=== PATIENT | male | born 1975 | race Caucasian/White ===

== ENCOUNTER → 2017-12-18 | Outpatient (CLI) | payer BC ==
[~2017-12-18] MED LIST: ATOR-22
[2017-12-18 12:20] LABS: BASO % 0.6 %; BASO ABS # 0.05 K/uL (0-0.2); EOS % 1.4 %; EOS ABS # 0.13 K/uL (0-0.5); HEMATOCRIT 42.8 % (42-52); IG# 0.08 K/uL (0.00-0.02); LYMPH % 22.3 %; LYMPH ABS # 2.01 K/uL (1.2-3.4); MEAN CELL VOLUME 84.9 fL (80-100); MEAN CORPUSCULAR HEMOGLOBIN 29.8 pg (25-34); MEAN PLATELET VOLUME 10.4 fL (7.4-10.4); MONO % 9.3 %; MONO ABS # 0.84 K/uL (0.11-0.59); NEUT % 65.5 %; PLATELET COUNT 196 K/uL (130-400); RED CELL DISTRIBUTION WIDTH CV 12.5 % (11.5-14.5); RED CELL DISTRIBUTION WIDTH SD 38.6 fL (36.4-46.3); WHITE BLOOD COUNT 9.01 K/uL (4.8-10.8)
[2017-12-18 12:46] LABS: ALBUMIN 3.8 gm/dl (3.4-5.0); ALT/SGPT 44 U/L (12-78); BLOOD UREA NITROGEN 14 mg/dl (7-18); CALCIUM 8.9 mg/dl (8.5-10.1); CARBON DIOXIDE 24 mmol/L (21-32); CHOLESTEROL 254 mg/dl (0-200); CREATININE 0.81 mg/dl (0.60-1.40); GLUCOSE 104 mg/dl (70-99); POTASSIUM 4.1 mmol/L (3.5-5.1); SODIUM 140 mmol/L (136-145)
[2017-12-18 12:57] LABS: ALKALINE PHOSPHATASE 62 U/L (45-117); AST/SGOT 20 U/L (15-37); LDL CHOLESTEROL CALCULATED 161 mg/dl
== END | disposition home or self-care (01) ==
LOC: C.LABBFT 09:00
PROVIDERS: ATTEND Internal Medicine
DX: Z00.00 Encounter for general adult medical examination without abnormal findings (principal); E78.00 Pure hypercholesterolemia, unspecified; G47.00 Insomnia, unspecified; R53.83 Other fatigue; I10 Essential (primary) hypertension

== ENCOUNTER 2018-05-14 04:24 | Emergency (ER) | payer BC ==
[~2018-05-14] VITALS: Ht 188 cm; Wt 101.3 kg
[2018-05-14 04:26] VITALS: TEMP 36.8; Ht 188 cm; Wt 101.3 kg
[2018-05-14] MEDS ORDERED: KETOROLAC TROMETHAMINE 30 MG/ML VIAL IV STA (04:39)
[2018-05-14] MEDS ORDERED: DEXAMETHASONE SOD INJ 10 MG/ML VIAL ONE (04:45)
[2018-05-14] MEDS ORDERED: DEXAMETHASONE **PF** INJ 10 MG/ML VIAL IV ONE (04:45)
[2018-05-14 05:09] LABS: BASO % 0.3 %; BASO ABS # 0.03 K/uL (0-0.2); EOS % 1.2 %; EOS ABS # 0.14 K/uL (0-0.5); HEMATOCRIT 42.5 % (42-52); HEMOGLOBIN 14.3 g/dL (14.0-18.0); IG# 0.12 K/uL (0.00-0.02); LYMPH % 15.3 %; LYMPH ABS # 1.77 K/uL (1.2-3.4); MEAN CELL VOLUME 86.2 fL (80-100); MEAN CORPUSCULAR HGB CONC 33.6 g/dl (32-36); MEAN PLATELET VOLUME 10.9 fL (7.4-10.4); MONO % 8.1 %; MONO ABS # 0.94 K/uL (0.11-0.59); NEUT % 74.1 %; NEUT ABS # 8.57 K/uL (1.4-6.5); PLATELET COUNT 164 K/uL (130-400); RED CELL DISTRIBUTION WIDTH SD 41.4 fL (36.4-46.3); WHITE BLOOD COUNT 11.57 K/uL (4.8-10.8)
[2018-05-14] MEDS ORDERED: ATOR10TA82 PO (05:28)
[2018-05-14] MEDS ORDERED: AMLO10TA3 PO (05:28)
[2018-05-14 05:48] LABS: ALBUMIN 3.5 gm/dl (3.4-5.0); CALCIUM 8.4 mg/dl (8.5-10.1); CREATININE 0.83 mg/dl (0.60-1.40); POTASSIUM 4.3 mmol/L (3.5-5.1); TOTAL PROTEIN 6.4 gm/dl (6.4-8.2); URIC ACID 8.5 mg/dl (2.6-7.2)
[2018-05-14 06:26] VITALS: BP 155/101; PULSE 97; O2SAT 100
[2018-05-14] MEDS ORDERED: INDO75CA PO (06:39)
--- NOTE | 2018-05-14 08:06 | DIAGNOSTIC IMAGING REPORT ---
L WRIST MIN 3 VIEWS ROUTINE CLINICAL HISTORY: 42 years-old Male presenting with left wrist pain, swelling for 2 days. TECHNIQUE: Frontal, bilateral oblique, and lateral views of the left wrist were obtained. COMPARISON: None. FINDINGS: No acute fracture or malalignment. No advanced degenerative change. No radiographic soft tissue abnormality. IMPRESSION: No acute osseous injury. Electronically signed by: Mahamed Nava M.D. 05/14/2018 8:05 AM Dictated Date/Time: 05/14/2018 7:29 AM
--- NOTE | 2018-05-15 04:05 | EMERGENCY ROOM VISIT NOTE ---
History First contact with patient: 04:30 Chief Complaint: HAND PAIN/INJURY Stated Complaint: SEVERE LEFT WRIST/HAND PAIN History of Present Illness The patient is a 42 year old male who presents to the Emergency Room with complaints of severe left wrist pain for the past 3-4 days. The patient does not recall distinct injury or trauma to explain his symptoms. He is employed, but does not typically use repetitive motion with his hands at work such as typing. He has not had fever or chills. No numbness or paresthesias. No pain into the left shoulder, although at times he will have some discomfort coming into the left elbow. The patient has not had symptoms like this in the past. He considers himself otherwise usually healthy. He rates his current discomfort at 8/10, that worsens with certain movements of the hand and wrist. Review of Systems More than 10 systems were reviewed and otherwise negative with the exception of history of present illness. Past Medical/Surgical History No chronic medical disease Family History No pertinent family history Social History Smoking Status: Never Smoker Alcohol Use: occasionally Housing Status: lives with family Occupation Status: employed Current/Historical Medications Scheduled Amlodipine (Norvasc), 10 MG PO DAILY Atorvastatin (Lipitor), 10 MG PO DAILY Indomethacin Ext Rel (Indocin Ext Rel), 75 MG PO BID Physical Exam Vital Signs Date Time Temp Pulse Resp B/P (MAP) Pulse Ox O2 Delivery O2 Flow Rate FiO2 05/14/18 06:26 97 14 155/101 100 Room Air 05/14/18 04:26 36.8 107 18 137/84 97 Room Air Physical Exam VITALS: Vitals are noted on the nurse's note and reviewed by myself. Vital signs stable. GENERAL: Well-developed, well-nourished, white male, who is in no acute distress and resting comfortably. Patient is cooperative with the examination. NECK: Supple without nuchal rigidity. No lymphadenopathy. No thyromegaly. Cervical spine is nontender. HEART: Regular rate and rhythm without murmurs gallops or rubs. LUNGS: Clear to auscultation bilaterally without wheezes, rales or rhonchi. No retractions or accessory muscle use. MUSCULOSKELETAL: Tenderness is appreciated around the left wrist diffusely. There is no distinct point tenderness. No snuffbox tenderness. The patient is unable to flex or extend at the wrist without significant discomfort. Movement of the thumb causes significant patient discomfort. 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 No erythema or edema is noted. The area is not warm to touch. There is no lymphangitic streaking. Neurovascularly he appears intact otherwise. Medical Decision & Procedures ER Provider Diagnostic Interpretation: L WRIST MIN 3 VIEWS ROUTINE CLINICAL HISTORY: 42 years-old Male presenting with left wrist pain, swelling for 2 days. TECHNIQUE: Frontal, bilateral oblique, and lateral views of the left wrist were obtained. COMPARISON: None. FINDINGS: No acute fracture or malalignment. No advanced degenerative change. No radiographic soft tissue abnormality. IMPRESSION: No acute osseous injury. Laboratory Results 05/14/18 04:40 Red Blood Count 4.93, Mean Corpuscular Volume 86.2, Mean Corpuscular Hemoglobin 29.0, Mean Corpuscular Hemoglobin Concent 33.6, Mean Platelet Volume 10.9, Neutrophils (%) (Auto) 74.1, Lymphocytes (%) (Auto) 15.3, Monocytes (%) (Auto) 8.1, Eosinophils (%) (Auto) 1.2, Basophils (%) (Auto) 0.3, Neutrophils # (Auto) 8.57, Lymphocytes # (Auto) 1.77, Monocytes # (Auto) 0.94, Eosinophils # (Auto) 0.14, Basophils # (Auto) 0.03 05/14/18 04:40 Test 05/14/18 04:40 White Blood Count 11.57 K/uL (4.8-10.8) Red Blood Count 4.93 M/uL (4.7-6.1) Hemoglobin 14.3 g/dL (14.0-18.0) Hematocrit 42.5 % (42-52) Mean Corpuscular Volume 86.2 fL (80-100) Mean Corpuscular Hemoglobin 29.0 pg (25-34) Mean Corpuscular Hemoglobin Concent 33.6 g/dl (32-36) Platelet Count 164 K/uL (130-400) Mean Platelet Volume 10.9 fL (7.4-10.4) Neutrophils (%) (Auto) 74.1 % Lymphocytes (%) (Auto) 15.3 % Monocytes (%) (Auto) 8.1 % Eosinophils (%) (Auto) 1.2 % Basophils (%) (Auto) 0.3 % Neutrophils # (Auto) 8.57 K/uL (1.4-6.5) Lymphocytes # (Auto) 1.77 K/uL (1.2-3.4) Monocytes # (Auto) 0.94 K/uL (0.11-0.59) Eosinophils # (Auto) 0.14 K/uL (0-0.5) Basophils # (Auto) 0.03 K/uL (0-0.2) RDW Standard Deviation 41.4 fL (36.4-46.3) RDW Coefficient of Variation 13.0 % (11.5-14.5) Immature Granulocyte % (Auto) 1.0 % Immature Granulocyte # (Auto) 0.12 K/uL (0.00-0.02) Erythrocyte Sedimentation Rate 2 mm/hr (0-14) Anion Gap 4.0 mmol/L (3-11) Est Creatinine Clear Calc Drug Dose 147.4 ml/min Estimated GFR () 125.8 Estimated GFR (Non- 108.5 BUN/Creatinine Ratio 26.0 (10-20) Uric Acid 8.5 mg/dl (2.6-7.2) Calcium Level 8.4 mg/dl (8.5-10.1) Total Bilirubin 0.3 mg/dl (0.2-1) Aspartate Amino Transf (AST/SGOT) 22 U/L (15-37) Alanine Aminotransferase (ALT/SGPT) 37 U/L (12-78) Alkaline Phosphatase 67 U/L (45-117) Total Creatine Kinase 103 U/L (39-308) C-Reactive Protein 0.46 mg/dl (0-0.29) Total Protein 6.4 gm/dl (6.4-8.2) Albumin 3.5 gm/dl (3.4-5.0) Globulin 2.9 gm/dl (2.5-4.0) Albumin/Globulin Ratio 1.2 (0.9-2) Thyroid Stimulating Hormone (TSH) 2.100 uIu/ml (0.300-4.500) Chemistry Specimen Hemolysis Lyme Disease IgG Antibody NEG (NEG) Lyme Disease IgM Antibody NEG (NEG) Medications Administered Medications (Trade) Dose Ordered Sig/Danyelle Route Start Time Stop Time Status Last Admin Dose Admin Ketorolac Tromethamine (Toradol Inj) 30 mg NOW STAT IV 05/14/18 04:39 05/14/18 04:41 DC 05/14/18 04:54 30 MG Dexamethasone Sodium Phosphate (Decadron Inj) 10 mg STK-MED ONCE .ROUTE 05/14/18 04:45 05/14/18 04:46 DC 05/14/18 04:53 10 MG ED Course Physical exam and history were performed. Nursing notes, EMR, and Medication List were personally reviewed. Patient appears to have severe left wrist pain bring him to the ER tonight. The patient is quite uncomfortable with movement primarily of the wrist and with movement of the thumb. He does not have gross obvious infection or significant swelling. He certainly could have an element of carpal tunnel syndrome, however he does not have a history that distinctly points in that direction. Because of his symptoms IV access was established and labs were obtained. The patient was hydrated with normal saline and given IV Toradol. X- ray was performed. The patient's blood work is as above and was reviewed. He does have a minimally elevated white blood cell count. He is not anemic. His sed rate and CRP are not significantly elevated. Lyme disease is negative. The patient does have an elevated uric acid, which suggests gout. X-ray was reviewed by myself and radiology as showing no acute process. On reevaluation the patient did feel much better after the Toradol. Overall I suspect his symptoms may be related to gout as he does not have other process to better describe his symptoms. I will give him a course of Indocin and have him follow with his PCP or orthopedics. The patient will be given a note for a few days off work. He was otherwise invited back to the ER with any new, worsening, or concerning symptoms. The chart was completed utilizing [employer] Speech Voice Recognition Software. Grammatical errors, random word insertions, pronoun errors, and incomplete sentences are an occasional consequence of this system due to software limitations, ambient noise, and hardware issues. Any formal questions or concerns about the content, text, or information contained within the body of this dictation should be directly addressed to the provider for clarification. . Medical Decision Differential diagnosis includes, but is not limited to: Sprain, strain, fracture , dislocation, subluxation, lyme disease, carpal tunnel syndrome, tendinitis, and others Impression Primary Impression: Left wrist pain Additional Impression: Gout attack Departure Information Dispostion Home / Self-Care Condition GOOD Prescriptions Indomethacin Ext Rel (Indocin Ext Rel) 75 Mg Capcr 75 MG PO BID for 7 Days, #30 CAP Take with food Prov: Maximilian Vaughn PA-C 05/14/18 Forms HOME CARE DOCUMENTATION FORM, Work Instructions, Additional Instructions: Patient was seen and evaluated today in the emergency department fo medical care. Return to work on 05/16/2018. Please excuse. IMPORTANT VISIT INFORMATION Patient Instructions My [facility] Additional Instructions You were seen and evaluated today on an emergency basis only. This is not a substitute for, or an effort to provide, complete comprehensive medical care. It is not possible to recognize and treat all injuries or illnesses in a single emergency department visit. For this reason it is recommended that you followup with your primary care physician with any ongoing or persisting symptoms. Take indomethacin twice daily with food for the next 7 days. You may continue this another week if needed. You are welcome to return to the emergency department anytime with new, worsening, or concerning symptoms. Work Instructions Additional Work Instructions: Patient was seen and evaluated today in the emergency department for medical care. Return to work on 05/16/2018. Please excuse. Problem Qualifiers
== END 2018-05-14 06:49 | disposition home or self-care (01) ==
LOC: C.EDB 04:26 → C.EDA 06:49
DX: M10.032 Idiopathic gout, left wrist (principal); D72.829 Elevated white blood cell count, unspecified; M25.522 Pain in left elbow; Z79.899 Other long term (current) drug therapy